=== PATIENT | female | born 1940 ===

== ENCOUNTER 2018-05-30 19:48 | Emergency (ER) | payer MEDICARE, OTHER ==
[2018-05-30 20:01] VITALS: RESP 16
[2018-05-30] MEDS ORDERED: Sodium Chloride 0.9% 1,000 ML IV STA (20:33)
--- NOTE | 2018-05-30 20:51 | ED PDOC ---
HPI: Abdomen Chief Complaint (Provider): Abdominal pain History Per: Patient History/Exam Limitations: language barrier (somali) Onset/Duration Of Symptoms: Days (6) Current Symptoms Are (Timing): Still Present Context: Food Severity: Moderate Pain Scale Rating Of: 8 Location Of Pain/Discomfort: RUQ, RLQ, Epigastric Quality Of Discomfort: Pressure, "Pain" Associated Symptoms: Nausea, Vomiting, Constipation. denies: Diarrhea Exacerbating Factors: Movement, Food Alleviating Factors: None Last Bowel Movement: Yesterday Additional History Per: Family (grand daughter) Abnormal Vaginal Bleeding: No <Reyes Chua - Last Filed: 05/31/18 01:04> <Gordon Benites - Last Filed: 05/31/18 04:21> Time Seen by Provider: 05/30/18 20:10 Chief Complaint (Nursing): Abdominal Pain Additional Complaint(s): 78 yo F with mhx of Htn and dyslipidemia presents with 6 day history of epigastric pain with dysphagia. Epigastric pain: Started 6 days ago radiating to throat, lumbar spine, and RLQ. Pain is at max 10/10, pressure like, exacerbated with food and water, mildly alleviated with motrin 800 mg. Denies recent abdominal trauma, falls. Reports subjective fever; has not taken temperature at home. Denies recent illness -radiating to back: lumbar spine, pressure. Denies history of similar symtoms. Denies recent falls, trauma to spine. -radiating to throat: with associated dysphagia. Was recently seen 2 days prior by PMD who referred her to GI. She reports dysphagia: some trouble swallowing and that there may be food stuck in her throat. She denies cough or sensation of throat closing. Reports ability to breathe well. -Radiating to RLQ: Reports pressure like pain, worse with palpation, Associated with epigastric pain with PO challenge. Currently: denies CP/SOB/N/V/Diarrhea PMD: Dr. Nishant Proctor in [place], [place] pmhx: HTN, DLD surg: leiomyomectomy 1997; no other abdominal surgeries Famxh: HTN, CAD Soc: Denies smoking, alcohol, illicit drugs; Lives alone NKDA rx: Metoprolol; lisinopril (Reyes Chua) Supervising Attending Note - Attestation: I have personally seen and examined this patient.: Yes I have fully participated in the care of the patient.: Yes I have reviewed all pertinent clinical information: Yes <Gordon Benites - Last Filed: 05/31/18 04:21> Past Medical History - Medical History PMH: HTN, Hyperlipidemia - Surgical History Other surgeries: leiomyomectomy 1997 - Family History Family History: States: CAD, Hypertension - Living Arrangements Living Arrangements: Alone - Social History Current smoker - smoking cessation education provided: No Alcohol: None Drugs: Denies <Reyes Chua - Last Filed: 05/31/18 01:04> <Gordon Benites - Last Filed: 05/31/18 04:21> Vital Signs: Last Vital Signs Temp 98.4 F 05/31/18 03:44 Pulse 87 05/31/18 03:44 Resp 16 05/31/18 03:44 BP 142/89 05/31/18 03:44 Pulse Ox 97 05/31/18 03:44 - Allergies Allergies/Adverse Reactions: Allergies Allergy/AdvReac Type Severity Reaction Status Date / Time No Known Allergies Allergy Verified 05/30/18 19:55 Review of Systems Constitutional: Positive for: Fever (subjective) Cardiovascular: Negative for: Chest Pain Respiratory: Negative for: Cough, Shortness of Breath Gastrointestinal: Positive for: Nausea, Vomiting, Abdominal Pain, Constipation. Negative for: Melena, Hematochezia Genitourinary Female: Negative for: Dysuria Musculoskeletal: Positive for: Back Pain (lumbar) Neurological: Negative for: Confusion, Altered Mental Status <Reyes Chua - Last Filed: 05/31/18 01:04> Physical Exam - Reviewed Vital Signs Reviewed: Yes - Physical Exam Appears: Positive for: Uncomfortable Head Exam: Positive for: ATRAUMATIC Skin: Positive for: Warm, Dry Eye Exam: Positive for: EOMI Cardiovascular/Chest: Positive for: Regular Rate, Rhythm. Negative for: Murmur Respiratory: Positive for: Normal Breath Sounds. Negative for: Wheezing Gastrointestinal/Abdominal: Positive for: Bowel Sounds, Soft, Tenderness ( Epigastric, RLQ, RUQ), Distended, Rebound (MILD) Back: Positive for: Vertebral Tenderness (L1-3). Negative for: L CVA Tenderness , R CVA Tenderness Extremity: Negative for: Calf Tenderness Neurologic/Psych: Positive for: Alert, manager contact II-XII, Oriented <Reyes Chua - Last Filed: 05/31/18 01:04> - Laboratory Results Result Diagrams: 05/30/18 20:58 05/30/18 20:58 - ECG O2 Sat by Pulse Oximetry: 99 - Radiology X-Ray: Viewed By [place] - CT Scan/US abdo/pelvis Other Rad Studies (CT/US): Read By Radiologist, Radiology Report Reviewed <Reyes Chua - Last Filed: 05/31/18 01:04> - Laboratory Results Result Diagrams: 05/30/18 20:58 05/30/18 20:58 <Gordon Benites - Last Filed: 05/31/18 04:21> - Progress ED Course And Treament: 78 yo F with pmhx of HTN, dyslipidemia presents with epigastric pain radiating to throat, lumbar spine, RLQ with associated dysphagia -CT abdo, US ruq, CXR, EKG, -CBC, CMP, VBG, lipase, UA -zofran, pepcid, 1 L NS bolus 21:30 -CXR and labs reviewed 01:05 -ct abdo and us abdo reports read by radiologist and reviewed Pt tolerating PO liquids; Denies appetite Pt d/c home with ER precautions Pt reports GI referral: pending Case dw Dr. Kamari Chua MD PGY2 (Reyes Chua) Disposition - Patient ED Disposition Is Patient to be Admitted: No - Disposition Disposition: Routine/Home Disposition Time: 01:07 <Reyes Chua - Last Filed: 05/31/18 01:04> <Gordon Benites - Last Filed: 05/31/18 04:21> - Clinical Impression Clinical Impression: Abdominal pain in female, Nausea & vomiting, Gastritis, Diverticulosis - Disposition Referrals: Mei Lee MD [Medical Doctor] - Condition: GOOD Additional Instructions: Pt d/c home with zofran and pepcid ER precautions reviewed with patient and family at bedside pt to f/u with pmd in 3-5 days Pt reports GI referral is pending Prescriptions: Famotidine [Pepcid] 20 mg PO DAILY #14 tab Ondansetron HCl [Zofran] 4 mg PO DAILY #7 tablet Instructions: Gastritis, Diverticulosis, Ulcer and Gastritis Diet Forms: [facility] ([place]) Print Language: TELUGU
[2018-05-30 21:02] LABS: VENOUS BLOOD GAS BASE EXCESS 5.6 mmol/L (0.0-2.0); VENOUS BLOOD GAS PCO2 41 mmHg (40-60); VENOUS BLOOD GAS PO2 27 mm/Hg (30-55); VENOUS BLOOD PH 7.47 (7.32-7.43)
[2018-05-30 21:09] LABS: SQUAMOUS EPITHIAL 1 /hpf (0-5); URINE BACTERIA RARE (<OCC); URINE BILIRUBIN NEGATIVE (NEGATIVE); URINE BLOOD NEGATIVE (NEGATIVE); URINE CLARITY CLEAR (Clear); URINE COLOR YELLOW (YELLOW); URINE GLUCOSE (UA) NEG (Normal); URINE LEUKOCYTE ESTERASE NEG Leu/uL (Negative); URINE PROTEIN NEGATIVE (NEGATIVE); URINE UROBILINOGEN 0.2-1.0 mg/dL (0.2-1.0)
[2018-05-30 21:10] LABS: BASO # 0.1 K/uL (0.0-0.2); BASO % 0.9 % (0.0-2.0); EOS # 0.4 K/uL (0.0-0.7); EOS % 3.4 % (0.0-4.0); HEMOGLOBIN 12.5 g/dL (12.0-16.0); LYMPH # 3.9 K/uL (1.0-4.3); LYMPH % 31.3 % (20.0-40.0); MEAN CELL VOLUME 95.9 fl (81.0-99.0); MEAN CORPUSCULAR HEMOGLOBIN 30.7 pg (27.0-31.0); MEAN PLATELET VOLUME 9.6 fl (7.2-11.7); MONO # 0.7 K/uL (0.0-0.8); NEUT # 7.3 K/uL (1.8-7.0); NEUT % 58.4 % (50.0-75.0); RBC 4.09 Mil/uL (3.80-5.20); RED CELL DISTRIBUTION WIDTH 13.7 % (11.5-14.5); WHITE BLOOD COUNT 12.5 K/uL (4.8-10.8)
[2018-05-30 21:15] LABS: ALB/GLOB RATIO 1.1 (1.0-2.1); ALBUMIN 4.5 g/dL (3.5-5.0); ALT/SGPT 21 U/L (9-52); AST/SGOT 26 U/L (14-36); BLOOD UREA NITROGEN 12 mg/dl (7-17); CALCIUM 10.1 mg/dL (8.4-10.2); GFR NON-AFRICAN AMERICAN > 60; LIPASE 158 U/L (23-300)
[2018-05-30] MEDS ORDERED: Iohexol 240 (50 ml) PO ONE (21:40)
[2018-05-30] MEDS ORDERED: Iohexol 240 (50 ml) ONE (21:52)
[2018-05-30] MEDS ORDERED: Iohexol 300 100 ML IJ ONE (23:50)
[2018-05-30] MEDS ORDERED: Sodium Chloride 0.9% 50 ML IV ONE (23:50)
[2018-05-31 03:46] VITALS: BP 142/89; PULSE 87; TEMP 98.4; O2SAT 97
--- NOTE | 2018-05-31 08:18 | CARD ---
APPROVED REPORT Date of service: 05/30/2018 <Conclusion> Normal sinus rhythm Right bundle branch block Abnormal ECG
--- NOTE | 2018-05-31 16:21 | RAD ---
Date of service: 05/30/2018 PROCEDURE: CHEST RADIOGRAPH, 1 VIEW HISTORY: abd pain COMPARISON: None available. FINDINGS: LUNGS: Poor inspiration with low lung volumes, crowded bronchovascular markings and mild bibasilar atelectasis. PLEURA: No pneumothorax or pleural fluid seen. CARDIOVASCULAR: Normal. OSSEOUS STRUCTURES: No significant abnormalities. VISUALIZED UPPER ABDOMEN: Normal. OTHER FINDINGS: None. IMPRESSION: Poor inspiration with low lung volumes, crowded bronchovascular markings and mild bibasilar atelectasis.
--- NOTE | 2018-05-31 17:56 | CT ---
Date of service: 05/30/2018 PROCEDURE: CT Abdomen and Pelvis HISTORY: Epigastric pain, RLQ pain COMPARISON: Correlation made with gallbladder ultrasound approximately 1 hour earlier. TECHNIQUE: Contiguous axial images of the abdomen and pelvis following oral and intravenous contrast material. Coronal and Sagittal reformats generated. 90 cc Omnipaque 300 contrast material injected for this procedure examination. Radiation dose: Total exam DLP = mGy-cm. This CT exam was performed using one or more of the following dose reduction techniques: Automated exposure control, adjustment of the mA and/or kV according to patient size, and/or use of iterative reconstruction technique. Radiation dose: Total exam DLP = 740.72 mGy-cm. FINDINGS: LOWER THORAX: Heart size within range of normal. No significant pericardial effusion. Tiny hiatal hernia with slight wall thickening of distal esophagus likely due to protrusion gastric mucosa. Possibility of esophagitis not excluded. LIVER: Liver exhibits normal size. Mild fatty hepatic infiltration. No obvious hepatic mass or collection Portal and splenic veins are opacified. GALLBLADDER AND BILE DUCTS: Unremarkable. PANCREAS: Unremarkable. No mass. No ductal dilatation. SPLEEN: Spleen exhibits normal size and attenuation pattern. ADRENALS: . No adrenal lesions. KIDNEYS AND URETERS: Kidneys that demonstrate relatively symmetric nephrograms. No evidence of nephrolithiasis or hydronephrosis. Probable small exophytic cyst posterior aspect mid to lower pole right kidney. Renal ultrasound could confirm. BLADDER: Urinary bladder is moderately distended. No evidence of intraluminal urinary bladder calculi. REPRODUCTIVE: Hysterectomy APPENDIX: Appendix is not seen with certainty however no secondary signs of acute appendicitis. BOWEL: Evaluation of the bowel slightly limited due to incomplete opacification. Stomach is incompletely distended. Visualized loops small bowel exhibit normal contour and caliber. No evidence of acute mechanical small bowel obstruction with oral contrast material seen extending into the colon to the level of the proximal transverse colon region. . Moderate amount of stool seen throughout the large bowel side suggesting mild fecal retention/ constipation. Sigmoid colon appears slightly redundant. PERITONEUM: Unremarkable. No fluid collection. No free air. LYMPH NODES: There are a few small nonspecific retroperitoneal lymph nodes. VASCULATURE: Unremarkable. No aortic aneurysm. BONES: Mild multilevel degenerative spondylosis of the lower thoracic and lumbar spine. OTHER FINDINGS: None. IMPRESSION: Mild fatty hepatic infiltration. Findings consistent with mild constipation. . Appendix not visualized however no secondary signs of acute appendicitis. Hysterectomy.
--- NOTE | 2018-05-31 18:05 | US ---
Date of service: 05/30/2018 HISTORY: Epigastric pain COMPARISON: None. TECHNIQUE: Sonographic evaluation of the right upper quadrant of the abdomen. FINDINGS: LIVER: Measures 13.9 cm in length. Increased hepatic echogenicity likely related to fatty infiltration however other infiltrative hepatic cellular disease process not excluded. Parenchyma. No mass. No intrahepatic bile duct dilatation. GALLBLADDER: Unremarkable. No gallstones. COMMON BILE DUCT: Measures 3.9 mm. No stones. No dilatation. PANCREAS: Unremarkable as visualized. No mass. No ductal dilatation. RIGHT KIDNEY: Measures 10.5 x 3.9 x 4.3 cm in length. Normal echogenicity. No calculus, mass, or hydronephrosis. Small cyst seen in the right kidney, 1 of which is located upper pole right measuring approximately 1.28 cm in greatest dimension and the other of in the lower pole measuring 1.4 cm in greatest dimension. The. AORTA: No aneurysmal dilatation. IVC: Unremarkable. OTHER FINDINGS: None . IMPRESSION: There are small right renal cysts. Mild fatty hepatic infiltration however other infiltrative hepatocellular disease process not excluded.
== END 2018-05-31 02:00 | disposition home or self-care (01) ==
LOC: H.ER 19:48
DX: R10.13 Epigastric pain (principal); K57.90 Diverticulosis of intestine, part unspecified, without perforation or abscess without bleeding; E78.5 Hyperlipidemia, unspecified; I10 Essential (primary) hypertension; I25.10 Atherosclerotic heart disease of native coronary artery without angina pectoris; R13.10 Dysphagia, unspecified
CPT/HCPCS: 71045; 74177; 76705; 80053; 81003; 82803; 83690; 85025; 93005; 96361; 96374; 96375; 99283; J2405; J7030; Q9966; Q9967